=== PATIENT | female | born 1975 | race Caucasian/White ===

== ENCOUNTER 2018-10-10 09:03 | Day surgery (SDC) | payer OTHER, SELFPAY ==
[2018-10-10 09:15] VITALS: BP 94/61; PULSE 76; RESP 16; TEMP 36.5; O2SAT 99
[2018-10-10 09:48] LABS: HCT 40.4 % (36.0-46.0); HGB 13.7 g/dL (12.0-15.5); Mean Corp. HGB Concentration 33.9 g/dL (32.0-36.0); Mean Corpuscular Hemoglobin 31.4 pg (27.0-33.0); Mean Corpuscular Volume 92.7 fL (80-95); Mean Platelet Volume 10.5 fL (8.0-11.0); Platelet Count 215 x1000/uL (130-400); RBC 4.36 m/cumm (4.00-5.20); RBC Distribution Width 11.8 % (11.7-14.6); White Blood Cell Count 7.79 k/cumm (4.4-10.8)
[2018-10-10] MEDS: Lactated Ringers 1,000 ML 125 ML IV ×2 (09:56→12:43)
[2018-10-10] MEDS: Silver Nitrate Stick 1 EACH (14:15)
--- NOTE | 2018-10-10 14:32 | ROE_ITS ---
Date of service: 10/10/18 Time of Service: 14:31 Operative Note DATE OF PROCEDURE: 10/10/18 PRE-OP DIAGNOSIS: cervical stenosis impeding iud insertion POST-OP DIAGNOSIS: same PROCEDURE: Mirena IUD placement SURGEON: Varsha Quigley ANESTHESIA: MAC ESTIMATED BLOOD LOSS: 10 PATHOLOGY: none sent COMPLICATIONS: None Patient was transported to: PACU Implants: Mirena IUD Indications: contraception, sedation needed to dilate stenotic cervix Findings: stenotic cervix, uterine cavity length 7.5 cm Procedure Description: The patient was taken to the operating room where she was properly identified she was then placed on the operating table in dorsal supine position. MAC anesthesia was then induced without difficulty the patient was placed in the dorsal lithotomy position and prepped in a normal sterile fashion. A bivalve speculum was placed in the vagina the cervix was visualized grasped on the anterior lip with a single-tooth tenaculum. Using the Dash dilators the cervix was cautiously dilated to allow insertion of the Mirena IUD. The uterus was sounded to 7.5 cm and the Mirena IUD was then placed into the uterus and the strings were cut short per the patient's request. All equipment was removed from this cervix a small amount of silver nitrate was used to stop the bleeding from the puncture site of the single- tooth tenaculum and hemostasis was confirmed the speculum was removed the patient was awakened and taken to recovery room in stable condition. Sponge lap needle and instrument count were correct x2
[2018-10-10 14:58] VITALS: BP 105/69; PULSE 59; RESP 18; TEMP 36.4; O2SAT 99
[2018-10-10] MEDS: Acetaminophen 500 MG TAB 1000 MG PO (15:05)
== END 2018-10-10 15:25 | disposition home or self-care (01) ==
PROVIDERS: PCP Family Medicine; Visit Provider Obstetrics & Gynecology
PROC: (CPT 58300; principal; 2018-10-10 09:30)
DX: N88.2 Stricture and stenosis of cervix uteri (principal); Z30.430 Encounter for insertion of intrauterine contraceptive device
CPT/HCPCS: 58300; 85027; 86850; 86900; 86901

== ENCOUNTER 2018-11-11 00:46 | Outpatient (CLI) | payer OTHER, SELFPAY ==
--- NOTE | 2018-11-11 15:04 | DI.MAMMO_ITS ---
SYMPTOM/DIAGNOSIS: DIAGNOSTIC, 6 MO F/U, F/U ABNL MAMMO RIGHT MAMMOGRAM: Mammograms were interpreted according to the usual protocol including computer analysis with CAD system, tomosynthesis and C view imaging. This is a 6 month follow up to 04/2018. The right breast is composed of scattered fibroglandular densities. A previously questioned area of increased density in the superior breast is no longer seen. No new masses or suspicious microcalcifications are seen. IMPRESSION: Category 1C, negative mammogram. Bilateral screening should be resumed in 6 months. [facility] ASSESSMENT OF FINDINGS: Negative. Category 1. Patient will receive a letter notifying them of these results. Bi-RADS category C. The breasts are heterogeneously dense, which may obscure small masses.
== END 2018-11-11 01:06 ==
PROVIDERS: PCP Family Medicine; Visit Provider Family Medicine
DX: Z12.31 Encounter for screening mammogram for malignant neoplasm of breast (principal); R92.8 Other abnormal and inconclusive findings on diagnostic imaging of breast; N60.81 Other benign mammary dysplasias of right breast
CPT/HCPCS: 77061; 77065; G0279

== ENCOUNTER 2018-11-19 17:17 | Outpatient (REF) | payer OTHER, SELFPAY ==
[2018-11-19 20:34] LABS: ALT 18 U/L (12-78); AST 16 U/L (15-37); Alkaline Phosphatase 60 U/L (46-116); Anion Gap 9.5 mmol/L (3-11); BUN 14 mg/dL (7-18); Bilirubin, Total 0.6 mg/dL (0.2-1.0); CO2 27.5 mmol/L (21.0-32.0); CREATININE 0.67 mg/dL (0.55-1.02); Calcium 8.8 mg/dL (8.5-10.1); Chloride 103 mmol/L (98-107); Glucose 85 mg/dL (70-100); Potassium 3.7 mmol/L (3.5-5.1); Sodium 140 mmol/L (136-145); Total Protein 6.9 g/dL (6.4-8.2); Vitamin B12 312 pg/mL (193-986)
[2018-11-21 00:05] LABS: Vitamin D 25 Total 51.4 ng/ml (30-100)
[2018-11-21 16:57] LABS: Tissue Transglutaminase Ab IgA <1.2 U/mL
== END 2018-11-19 17:37 ==
LOC: NCHCN 17:17
PROVIDERS: PCP Family Medicine; Visit Provider Family Medicine
DX: Z00.00 Encounter for general adult medical examination without abnormal findings (principal); R11.0 Nausea; K90.0 Celiac disease; K58.9 Irritable bowel syndrome, unspecified
CPT/HCPCS: 80053; 82306; 82607; 82746; 83516; 84443

== ENCOUNTER 2019-03-19 00:08 | Outpatient (CLI) | payer OTHER, SELFPAY ==
--- NOTE | 2019-03-19 14:15 | DI.RAD_ITS ---
SYMPTOMS/DIAGNOSIS: CELIAC DISEASE, K90.0 DEXA SCAN: DEXA scan was performed according to the usual protocol. Findings for left hip scanning are a T score of 0 with left femoral neck T score of 0.3. Previous examination of November 2014 showed a left hip T score of 0.4. Lumbar spine T score is -0.1 Previous lumbar spine T score was -0.1 in November 2014. Left forearm scanning shows a T score of 0. Previous examination of November 2014 showed left forearm T score of -0.3. CONCLUSION: Findings consistent with normal bone density according to the WHO criteria. Lateral vertebral scanogram shows no evidence of a vertebral compression fracture.
== END 2019-03-19 00:28 ==
PROVIDERS: PCP Family Medicine; Visit Provider Family Medicine
DX: K90.0 Celiac disease (principal); Z13.820 Encounter for screening for osteoporosis
CPT/HCPCS: 77080

== ENCOUNTER 2019-05-04 00:35 | Outpatient (CLI) | payer OTHER, SELFPAY ==
--- NOTE | 2019-05-04 08:23 | DI.RAD_ITS ---
SYMPTOM/DIAGNOSIS: IRRITABLE BOWEL SYNDROME, K58.9,CELIAC DISEASE,L90.0, BLOATING AND DISCOMFORT, ASSESS FOR AMOUNT OF STOOL ABDOMEN: A single view was obtained. There is an IUD in place in the pelvic midline. Bowel gas pattern is unremarkable with a moderate amount of fecal material in the colon and no evidence of obstruction. No other specific abnormality is seen.
== END 2019-05-04 00:55 ==
PROVIDERS: PCP Family Medicine; Visit Provider Family Medicine
DX: R14.0 Abdominal distension (gaseous) (principal); K58.9 Irritable bowel syndrome, unspecified; K90.0 Celiac disease; Z97.5 Presence of (intrauterine) contraceptive device
CPT/HCPCS: 74018

== ENCOUNTER 2020-01-08 09:26 | Outpatient (REF) | payer BC, SELFPAY ==
--- NOTE | 2020-01-08 08:15 | PAPFT_PTH ---
PATIENT: Leeanne Ward [facility] U#:[id number] AGE/SX: 44/F ROOM: RE01/08/[address]: Kaela Hernandez : 1975 BED: DIS: 01/08/2020 SPEC #: [id number] RECD: 01/08/20 16:26 STATUS: H[place]ARY REAna #: [id number] JACQUELINE: 01/08/20 08:[address]: Kaela Hernandez DEPT: [facility] Cytology RECD BY: Eva Layton Tissues: 1 - CX/ENDOCX FOR PAP SMEARS Procedures: PAP THIN PREP/[facility] Screening HPV DNA PROBE Comments: [id number]
[2020-01-08 13:16] LABS: ALT 23 U/L (14-59); AST 15 U/L (15-37); Alkaline Phosphatase 64 U/L (46-116); Anion Gap 8.8 mmol/L (3-11); BUN 16 mg/dL (7-18); Bilirubin, Total 0.5 mg/dL (0.2-1.0); CO2 28.2 mmol/L (21.0-32.0); CREATININE 0.58 mg/dL (0.55-1.02); Calcium 8.3 mg/dL (8.5-10.1); Chloride 105 mmol/L (98-107); Glucose 72 mg/dL (74-106); Potassium 4.1 mmol/L (3.5-5.1); Sodium 142 mmol/L (136-145); Vitamin B12 304 pg/mL (193-986)
[2020-01-11 09:35] LABS: IgA 26 mg/dL (85-499)
[2020-01-11 12:56] LABS: Vitamin D 25 Total 46.1 ng/ml (30-100)
[2020-01-12 09:09] LABS: Methylmalonic Acid 0.32 nmol/mL (<=0.40)
== END 2020-01-08 09:46 ==
LOC: NCHCN 09:26
PROVIDERS: PCP Family Medicine; Visit Provider Family Medicine
DX: Z00.00 Encounter for general adult medical examination without abnormal findings (principal); F41.9 Anxiety disorder, unspecified; D51.9 Vitamin B12 deficiency anemia, unspecified; Z51.81 Encounter for therapeutic drug level monitoring; Z12.4 Encounter for screening for malignant neoplasm of cervix
CPT/HCPCS: 80053; 80186; 82306; 82784; 88142; 82607; 87624

== ENCOUNTER 2020-11-16 18:24 | Outpatient (REF) | payer BC, SELFPAY ==
[2020-11-16 19:50] LABS: HCT 39.6 % (36.0-46.0); HGB 12.9 g/dL (11.2-15.7); MCH 30.3 pg (27.0-33.0); MCHC 32.6 % (32.0-36.0); MPV 10.9 fL (8.0-11.0); Platelet Count 226 10^3/uL (130-400); RBC 4.26 10^6/uL (3.93-5.22); RDW 11.8 % (11.7-14.6); RDW-SD 40.4 fL; WBC 4.97 10^3/uL (4.4-10.8)
[2020-11-16 20:40] LABS: ALT 22 U/L (14-59); AST 16 U/L (15-37); Albumin 4.1 g/dL (3.4-5.0); Alkaline Phosphatase 67 U/L (46-116); Anion Gap 5.5 mmol/L (3-11); BUN 21 mg/dL (7-18); Bilirubin, Total 0.4 mg/dL (0.2-1.0); CO2 30.5 mmol/L (21.0-32.0); CREATININE 0.76 mg/dL (0.55-1.02); Calcium 8.6 mg/dL (8.5-10.1); Chloride 105 mmol/L (98-107); Folate 5.7 ng/mL (8.6-20.0); Glucose 70 mg/dL (74-106); Potassium 3.9 mmol/L (3.5-5.1); Sodium 141 mmol/L (136-145); Total Protein 7.1 g/dL (6.4-8.2); Vitamin B12 454 pg/mL (193-986)
[2020-11-17 04:36] LABS: Vitamin D 25 Total 45.6 ng/ml (30-100)
[2020-11-21 13:04] LABS: Gliadin (Deamidated) Ab, IgA <10.0 U; Gliadin (Deamidated) Ab, IgG <10.0 U
[2020-11-21 15:07] LABS: IgA 27 mg/dL (85-499); Interpretation (See Note); Tissue Transglutaminase IgA <1.2 U/mL (<4.0)
[2020-11-22 12:09] LABS: Methylmalonic Acid 0.27 nmol/mL (<=0.40)
== END 2020-11-16 18:44 ==
LOC: NCHCN 18:24
PROVIDERS: PCP Family Medicine; Visit Provider Family Medicine
DX: K90.0 Celiac disease (principal); K58.9 Irritable bowel syndrome, unspecified; R53.83 Other fatigue; R11.0 Nausea; R20.9 Unspecified disturbances of skin sensation
CPT/HCPCS: 80053; 80186; 82306; 82784; 83516; 85027; 82607; 82746; 84443

== ENCOUNTER 2021-05-29 01:56 | Outpatient (CLI) | payer BC, SELFPAY ==
--- NOTE | 2021-05-29 08:30 | DI.CT_ITS ---
Exam(s) CT ABDOMEN PELVIS W EXAM: CT ABDOMEN PELVIS W CLINICAL HISTORY: PELVIC PAIN, R10.2, LOW BACK PAIN, M54.5. TECHNIQUE: Imaging Protocol: Axial computed tomography images with coronal and sagittal reformatted images were created and reviewed CONTRAST MATERIAL: Intravenous: Omnipaque 100cc Oral: Yes COMPARISON: CR XR ABDOMEN FLAT PLATE from 05/04/2019 FINDINGS: VISUALIZED LUNG BASES: Benign-appearing increased lung markings in the right lower lobe medially marychuy cent to an osteophyte. Probably atelectatic. There are no pleural effusions.. ABDOMEN: There is no ascites. LIVER: There are no focal hepatic lesions evident . GALLBLADDER/BILIARY: No obvious gallbladder pathology. CBD is not dilated. PANCREAS: No evidence of pancreatic mass nor dilatation of the pancreatic duct. SPLEEN: Spleen is not enlarged. No obvious intrasplenic lesions. Splenic and portal veins are paten t. ADRENALS: There are no significant adrenal masses. KIDNEYS:No cysts evident. No solid renal masses. No calculi nor hydronephrosis.. Retroaortic left renal vein is noted, this seen approximately 5 percent the general population. ABDOMINAL AORTA: Abdominal aorta is not enlarged. LYMPH NODES:There is no retroperitineal nor paraaortic adenopathy. ABDOMINAL WALL: No evidence of significant anterior abdominal wall hernia. GI: Diameter of small bowel loops is normal. No evidence of small-bowel obstruction. Oral contrast has reached the colon. Appendix appears unremarkable. PELVIS: GI: No evidence of appendicitis.No evidence of sigmoid diverticulitis. LYMPH NODES: There is no intrapelvic nor inguinal adenopathy. REPRODUCTIVE: There is an IUD in satisfactory position within the endometrial canal. There are no ab normal adnexal masses. No free fluid in the pelvis. URINARY BLADDER: No calculi nor obvious masses evident OSSEOUS: No significant osseous lesions. Sacroiliac joints appear unremarkable. IMPRESSION: 1. IUD is noted within the endometrial canal. This appears to be in satisfactory position. There ar e no abnormal adnexal findings. No free fluid. 2. No bowel obstruction. No free air. No abscess. No evidence of appendicitis nor diverticulitis. 3. 4. RADIATION DOSE DELIVERED: 647.32mGy.cm Total DLP DATA REPOSITORY: All CT scans at this facility are submitted to the National Radiology Data Registry (NRDR) Dose Index Registry (DIR) with the [employer] ([employer]). RADIATION OPTIMIZATION: All CT scans at this facility use at least one of these dose optimization te chniques: automated exposure control; mA and/or kV adjustment per patient size (includes targeted exa ms where dose is matched to clinical indication); or iterative reconstruction.
[2021-05-29] MEDS: Omnipaque 350 MG/ML 50 ML BTL PO (08:44)
[2021-05-29] MEDS: Breeza Beverage 473 ML BTL PO ×2 (08:44→08:45)
[2021-05-29] MEDS: Omnipaque 350 MG/ML 100 ML BTL IJ (09:37)
[2021-05-29] MEDS: Normal Saline - Diluent 50 ML VIAL IV (09:39)
--- NOTE | 2021-05-29 11:50 | DI.MRI_ITS ---
Exam(s) MR LUMBAR SPINE WO EXAM: MR LUMBAR SPINE WO CLINICAL HISTORY: PELVIC PAIN, R10.2, LOW BACK PAIN, M54.5, SCIATICA RT, M54.31. TECHNIQUE: Multiplanar multisequence MRI of the Lumbar spine was performed. COMPARISON: DX XR DEXA BONE DENSITY W/WO TOBI from 03/19/2019 FINDINGS: Five lumbar vertebrae are presumed Conus medullaris is at L1-2 level.. There is no evidence of conus mass nor subjacent clumping of int rathecal nerve roots to suggest arachnoiditis. The distal thecal sac appears unremarkable.There is n o evidence of Tarlov intrasacral cysts nor other significant findings within the sacral canal Bones:There are no fractures nor ominous osseous lesions in the lumbar vertebral bodies and visualize d sacrum. With respect to the individual levels... T12-L1: Unremarkable L1-2: Normal disc height and signal. No disc herniation nor central canal stenosis.No foraminal steno sis L2-3: Normal disc height. No disc herniation nor central canal stenosis.No foraminal stenosis.No face t arthropathy. L3-4: Normal disc height. No disc herniation or central canal stenosis.No foraminal stenosis.No face t arthropathy. L4-5: Normal disc height. There is a posterior central-slightly right of center disc herniation whic h extends posteriorly 5 mm and is approximately 1.2 cm wide. This indents the thecal sac anteriorly. Central canal dimensions are lower limb normal. This disc protrusion does not extend into the exit ing neural foramina which are patent bilaterally. There is no significant facet arthropathy at this level L5-S1: Normal disc height and signal. No disc herniation. No canal stenosis. No foraminal stenosis . Facets unremarkable Soft tissues: paraspinal soft tissues appear unremarkable. IMPRESSION: 1. Main finding here is at L4-5 level where there is a central subligamentous disc herniation as desc ribed above extending posteriorly 4-5 millimeters and approximately 1.2 cm wide. This indents the an terior thecal sac at this level. No true nor foraminal stenosis at this level nor facet arthropathy. 2. Other levels appear unremarkable. 3. In no significant osseous lesions. DATA REPOSITORY:
== END 2021-05-29 02:16 ==
PROVIDERS: PCP Family Medicine; Visit Provider Family Medicine
DX: R10.2 Pelvic and perineal pain; M51.16 Intervertebral disc disorders with radiculopathy, lumbar region; Z97.5 Presence of (intrauterine) contraceptive device
CPT/HCPCS: 72148; 74177; J3490; Q9967

== ENCOUNTER 2022-03-22 12:43 | Outpatient (REF) | payer BC, SELFPAY ==
[2022-03-22 15:50] LABS: HGB 12.8 g/dL (11.2-15.7); MCH 30.5 pg (27.0-33.0); MCHC 32.8 % (32.0-36.0); MCV 93.1 fL (80-95); MPV 11.4 fL (8.0-11.0); Platelet Count 221 10^3/uL (130-400); RBC 4.19 10^6/uL (3.93-5.22); RDW 12.4 % (11.7-14.6); RDW-SD 42.5 fL; WBC 5.62 10^3/uL (4.4-10.8)
[2022-03-22 16:59] LABS: Vitamin D 25 Total 23.3 ng/mL (30-100)
[2022-03-22 17:01] LABS: ALT 25 U/L (14-59); AST 20 U/L (15-37); Albumin 4.1 g/dL (3.4-5.0); Alkaline Phosphatase 82 U/L (46-116); Anion Gap 5.7 mmol/L (3-11); BUN 21 mg/dL (7-18); Bilirubin, Total 0.5 mg/dL (0.2-1.0); CO2 27.3 mmol/L (21.0-32.0); CREATININE 0.6 mg/dL (0.55-1.02); Calcium 8.5 mg/dL (8.5-10.1); Chloride 107 mmol/L (98-107); Glucose 79 mg/dL (74-106); Potassium 4.7 mmol/L (3.5-5.1); Sodium 140 mmol/L (136-145); Total Protein 7.1 g/dL (6.4-8.2); Vitamin B12 1153 pg/mL (193-986)
[2022-03-26 12:46] LABS: Tissue Transglutaminase Ab IgA <1.2 U/mL; Tissue Transglutaminase Ab IgG 1.8 U/mL
[2022-03-26 21:56] LABS: Gliadin (Deamidated) Ab, IgG <10.0 U
== END 2022-03-22 12:44 | disposition home or self-care (01) ==
LOC: NCHCN 12:43
PROVIDERS: PCP Family Medicine; Visit Provider Family Medicine
DX: K90.0 Celiac disease (principal); Z00.00 Encounter for general adult medical examination without abnormal findings; F41.9 Anxiety disorder, unspecified; R53.83 Other fatigue; R20.2 Paresthesia of skin; R00.2 Palpitations; R11.0 Nausea
CPT/HCPCS: 80053; 82306; 83516; 85027; 82607

== ENCOUNTER → 2022-04-03 17:45 | Outpatient (CLI) | payer BC, SELFPAY ==
--- NOTE | 2022-04-03 | DI.RAD_ITS ---
Exam(s) XR ANKLE RT COMPLETE EXAM: XR ANKLE RT COMPLETE CLINICAL HISTORY: ANKLE JOINT PAIN, FOOT PAIN. TECHNIQUE: 2D digital imaging was performed. Three views. COMPARISON: No exams were available for comparison FINDINGS: BONES: No acute fracture is present. No bony destructive lesion is seen. Tiny plantar calcaneal sp ur. Small ossicle seen at the dorsal aspect of talonavicular joint. JOINTS: The ankle mortise is normally aligned. SOFT TISSUE: Normal. Artifact related to compression stocking. IMPRESSION: Unremarkable radiographs of the right ankle. DATA REPOSITORY: RADIATION DOSE DELIVERED:
--- NOTE | 2022-04-03 | DI.RAD_ITS ---
Exam(s) XR FOOT RT COMPLETE EXAM: XR FOOT RT COMPLETE CLINICAL HISTORY: RT FOOT PAIN. TECHNIQUE: 2D digital imaging was performed. Three views. COMPARISON: No exams were available for comparison FINDINGS: BONES: No acute fracture is present. No bony destructive lesion is seen. Small ossicles lateral to c uboid. Small ossicle at the dorsal talar navicular joint. Tiny plantar calcaneal spur. JOINTS: No dislocation present. No significant joint space narrowing. SOFT TISSUE: Normal. Artifact from compression stocking. IMPRESSION: Unremarkable radiographs of the right foot. DATA REPOSITORY: RADIATION DOSE DELIVERED:
--- NOTE | 2022-04-03 18:42 | DI.VRAD_ITS ---
PROCEDURE INFORMATION: Exam: XR Right Foot Exam date and time: 04/03/2022 18:17 Age: 47 years old Clinical indication: Other: Ankle joint pain, foot pain TECHNIQUE: Imaging protocol: XR Right foot. Views: 3 or more views. COMPARISON: CR RIGHT FOOT COMPLETE 06/07/2016 14:22 FINDINGS: Bones/joints: Tiny plantar calcaneal spur. No acute fracture or subluxation. Soft tissues: Normal. IMPRESSION: No acute bony pathology. Dictated and Authenticated by: Lorraine Beck MD. Ordering:ALLY Berger MD
--- NOTE | 2022-04-03 18:42 | DI.VRAD_ITS ---
PROCEDURE INFORMATION: Exam: XR Right Ankle Exam date and time: 04/03/2022 18:15 Age: 47 years old Clinical indication: Other: Ankle joint pain, foot pain TECHNIQUE: Imaging protocol: XR Right ankle. Views: 3 or more views. COMPARISON: CR RIGHT FOOT COMPLETE 06/07/2016 14:22 FINDINGS: Bones/joints: No acute fracture or subluxation. Tiny plantar calcaneal spur. Soft tissues: Unremarkable. IMPRESSION: No acute bony pathology. Dictated and Authenticated by: Lorraine Beck MD. Ordering:ALLY Berger MD
== END ==
PROVIDERS: PCP Family Medicine; Visit Provider Nurse Practitioner Family
DX: M25.571 Pain in right ankle and joints of right foot (principal); M79.671 Pain in right foot; M77.31 Calcaneal spur, right foot
CPT/HCPCS: 73610; 73630

== ENCOUNTER 2022-12-28 16:44 | Outpatient (REF) | payer BC, SELFPAY ==
[2022-12-28 16:36] LABS: HCT 40.9 % (36.0-46.0); HGB 13.6 g/dL (11.2-15.7); MCH 30.7 pg (27.0-33.0); MCHC 33.3 % (32.0-36.0); MCV 92 fL (80-95); MPV 10.8 fL (8.0-11.0); Platelet Count 246 10^3/uL (130-400); RBC 4.43 10^6/uL (3.93-5.22)
[2022-12-28 17:15] LABS: ALT 19 U/L (14-59); AST 27 U/L (15-37); Albumin 4.2 g/dL (3.4-5.0); Alkaline Phosphatase 84 U/L (46-116); Anion Gap 6.6 mmol/L (3-11); BUN 17 mg/dL (7-18); Bilirubin, Total 0.5 mg/dL (0.2-1.0); CO2 28.4 mmol/L (21.0-32.0); CREATININE 0.8 mg/dL (0.55-1.02); Calcium 9.4 mg/dL (8.5-10.1); Calculated LDL 125 mg/dL (<100); Chloride 104 mmol/L (98-107); Cholesterol 230 mg/dL (<200); Estimated GFR 90.83 (mL/min/1.73m2); Glucose 86 mg/dL (74-106); HDL Cholesterol 100 mg/dL (40-60); Potassium 4.6 mmol/L (3.5-5.1); Sodium 139 mmol/L (136-145); Total Protein 7.9 g/dL (6.4-8.2); Triglyceride 25 mg/dL (<150); Vitamin B12 1216 pg/mL (193-986)
[2022-12-28 17:18] LABS: Vitamin D 25 Total 36.7 ng/mL (30-100)
[2022-12-28 17:54] LABS: TSH (W/Ref FT4) 1.52 uIU/mL (0.36-3.74)
[2022-12-28 18:12] LABS: C-Reactive Protein < 0.05 mg/dL (0.0-0.3)
[2022-12-31 10:12] LABS: FSH >150.0 mIU/mL (See Note); LH 65.6 mIU/mL (See Note)
[2023-01-01 18:52] LABS: Gliadin (Deamidated) Ab, IgG <10.0 U
== END 2022-12-28 16:45 | disposition home or self-care (01) ==
LOC: NCHCN 16:44
PROVIDERS: PCP Family Medicine; Visit Provider Family Medicine
DX: K90.0 Celiac disease (principal); Z00.00 Encounter for general adult medical examination without abnormal findings; Z13.220 Encounter for screening for lipoid disorders; E55.9 Vitamin D deficiency, unspecified; R53.83 Other fatigue; Z78.0 Asymptomatic menopausal state; R00.2 Palpitations
CPT/HCPCS: 80053; 80061; 82306; 83516; 85027; 82607; 83001; 83002; 84443; 86140

== ENCOUNTER 2024-08-05 18:24 | Outpatient (REF) | payer BC, SELFPAY ==
[2024-08-05 20:24] LABS: HCT 37.8 % (36.0-46.0); HGB 12.6 g/dL (11.2-15.7); MCH 31.2 pg (27.0-33.0); MCHC 33.3 % (32.0-36.0); MCV 94 fL (80-95); Platelet Count 222 10^3/uL (130-400); RBC 4.04 10^6/uL (3.93-5.22); RDW 11.9 % (11.7-14.6); RDW-SD 41.9 fL; WBC 6.89 10^3/uL (4.4-10.8)
[2024-08-05 21:03] LABS: ALT 23 U/L (14-59); AST 19 U/L (15-37); Albumin 3.8 g/dL (3.4-5.0); Alkaline Phosphatase 76 U/L (46-116); Anion Gap 7.2 mmol/L (3-11); BUN 11 mg/dL (7-18); Bilirubin, Total 0.28 mg/dL (0.2-1.0); CO2 28.8 mmol/L (21.0-32.0); CREATININE 0.8 mg/dL (0.55-1.02); Calcium 8.7 mg/dL (8.5-10.1); Chloride 104 mmol/L (98-107); Estimated GFR 89.71 (mL/min/1.73m2); Glucose 83 mg/dL (74-106); Potassium 4.1 mmol/L (3.5-5.1); Sodium 140 mmol/L (136-145); TSH (W/Ref FT4) 1.44 uIU/mL (0.36-3.74); Total Protein 6.9 g/dL (6.4-8.2); Vitamin D 25 Total 64.5 ng/mL (30-100)
[2024-08-07 09:46] LABS: Hepatitis C Ab w Rflx HCV PCR Negative (Negative)
[2024-08-07 11:44] LABS: HIV-1/2 Ag & Ab Screen Negative (Negative)
[2024-08-07 21:59] LABS: Gliadin (Deamidated) Ab, IgA <10.0 U
== END 2024-08-05 18:25 | disposition home or self-care (01) ==
LOC: NCHCN 18:24
PROVIDERS: PCP Family Medicine; Visit Provider Family Medicine
DX: K90.0 Celiac disease (principal); Z11.4 Encounter for screening for human immunodeficiency virus [HIV]; Z11.59 Encounter for screening for other viral diseases; E55.9 Vitamin D deficiency, unspecified
CPT/HCPCS: 80053; 82306; 83516; 85027; 86803; 87389; 84443

== ENCOUNTER 2025-05-17 18:28 | Outpatient (REF) | payer BC, SELFPAY ==
[2025-05-17 19:38] LABS: HCT 39.4 % (36.0-46.0); HGB 13.2 g/dL (11.2-15.7); MCHC 33.5 % (32.0-36.0); MCV 93 fL (80-95); MPV 10.6 fL (8.0-11.0); Platelet Count 241 10^3/uL (130-400); RBC 4.26 10^6/uL (3.93-5.22); RDW 11.9 % (11.7-14.6); RDW-SD 40.1 fL; WBC 6.27 10^3/uL (4.4-10.8)
[2025-05-17 20:16] LABS: ALT 33 U/L (14-59); AST 20 U/L (15-37); Albumin 4.1 g/dL (3.4-5.0); Alkaline Phosphatase 102 U/L (46-116); Anion Gap 10.1 mmol/L (3-11); BUN 15 mg/dL (7-18); Bilirubin, Total 0.3 mg/dL (0.2-1.0); CO2 27.9 mmol/L (21.0-32.0); CREATININE 0.8 mg/dL (0.55-1.02); Calcium 9.2 mg/dL (8.5-10.1); Chloride 104 mmol/L (98-107); Estimated GFR 89.15 (mL/min/1.73m2); Ferritin 113 ng/mL (8-252); Folate 4.4 ng/mL (8.6-20.0); Glucose 85 mg/dL (74-106); Potassium 4.4 mmol/L (3.5-5.1); Sodium 142 mmol/L (136-145); TSH (W/Ref FT4) 1.47 uIU/mL (0.36-3.74); Total Protein 7.7 g/dL (6.4-8.2); Vitamin B12 496 pg/mL (193-986)
[2025-05-17 21:29] LABS: Hemoglobin A1C 5.4 % (<5.7)
[2025-05-18 04:54] LABS: Vitamin D 25 Total 64 ng/mL (30-100)
[2025-05-19 12:20] LABS: Tissue Transglutaminase IgA <4.0 CU (<20.0)
[2025-05-21 13:40] LABS: Gliadin (Deamidated) Ab, IgG <10.0 U
== END 2025-05-17 18:29 | disposition home or self-care (01) ==
LOC: NCHCN 18:28
PROVIDERS: PCP Family Medicine; Visit Provider Family Medicine
DX: K90.0 Celiac disease (principal); R73.03 Prediabetes
CPT/HCPCS: 80053; 82306; 83516; 85027; 86364; 82607; 82728; 82746; 83036; 84443

== ENCOUNTER 2025-05-24 04:43 | Emergency (ER) | payer BC, SELFPAY ==
--- NOTE | 2025-05-24 04:46 | W.ED.GENAD ---
Discharge Plan Disposition Patient Disposition: Home Condition: Improving Discharge Details Clinical Impression: Spasm of muscle of lower back Primary Care Provider: Kaela Hernandez ED Provider: Aleks Gunderson [place] Meds and New Rx's Prescriptions: New methocarbamol 500 mg tablet 1,000 mg PO TID Qty: 30 0RF lidocaine 5 % adhesive patch,medicated 1 patch topical DAILY Qty: 15 0RF Rx Instructions: leave on most painful area for up to 12 hrs Continued Prempro 0.625-2.5 mg tablet 1 tab PO DAILY Patient Comments: TAKE 1 TABLET BY MOUTH DAILY phentermine 15 mg capsule 15 mg PO DAILY Patient Comments: TAKE 1 CAPSULE BY MOUTH ONCE DAILY bupropion HCl 100 mg tablet sustained-release 12 hr 100 mg PO BID Patient Comments: TAKE 1 TABLET BY MOUTH TWICE DAILY, MAY INCREASE TO 2 TABLETS PER DAY Discharge Instructions Instructions: Muscle Spasm ED Additional Instructions: You were seen for low back pain that is likely musculoskeletal and related to muscle spasm as we discussed. You will need to rest for the next day or 2. You should alternate ibuprofen 600 mg with acetaminophen 1000 mg every 4 hours. A prescription for the methocarbamol (Robaxin) and lidocaine patches has been sent to pharmacy. Would use heat or cold therapy whichever seems to work better. Follow-up with primary care in the next couple of days if you are not improving. Return to the ED if you develop any bladder or bowel dysfunction, numbness or weakness to the lower extremities, fever, abdominal pain, other concerns. Referrals: Kaela Hernandez MD [Primary Care Provider, Medicine] [facility] General Mode of arrival: ambulatory. Date/Time Provider Initiated Documentation: 05/24/25 04:46. Limitations to Documentation: no limitations. Information obtained by: patient, RN notes reviewed and old records reviewed. HPI Narrative: Patient presents to ED with lower back pain that she first noticed yesterday while walking into the grocery store. She had a sharp stabbing pain in the right side of her lower back near the sacrum. It resolved but over the course of the evening and overnight she has had increasing pain in this area especially with any type of movement. She denies any discrete injury. She did take Itzel Back [employer] Body pain relief last night. She was essentially unable to get out of bed this morning without help from her . She reports a long history of GI problems related to celiac, IBD. She had been having some problems with constipation and took 2 caps of MiraLAX yesterday which did result in bowel movement. He has not having any fever, vomiting, urinary symptoms. She will occasionally have problems with sciatica type pain but this seems completely different. Pain does not seem to be too bad once she is up. She is able to walk slowly and has to move cautiously especially in regards to turning her trunk. Related Data Home Medications ?Medication ?Instructions ?Recorded ?Confirmed bupropion HCl 100 mg tablet,12 hr 100 mg PO BID 05/24/25 05/24/25 sustained-release conj estrogen-medroxyprogesterone 1 tab PO DAILY 05/24/25 05/24/25 0.625 mg-2.5 mg tablet (Prempro) lidocaine 5 % topical patch 1 patch topical DAILY #15 ea 05/24/25 methocarbamol 500 mg tablet 1,000 mg (2 x 500 mg) PO TID #30 05/24/25 tabs phentermine 15 mg capsule 15 mg PO DAILY 05/24/25 05/24/25 Previous Rx's ?Medication ?Instructions ?Recorded lidocaine 5 % topical patch 1 patch topical DAILY #15 ea 05/24/25 methocarbamol 500 mg tablet 1,000 mg (2 x 500 mg) PO TID #30 05/24/25 tabs Allergies Allergy/AdvReac Type Severity Reaction Status Date / Time No Known Allergies Allergy Verified 10/10/18 09:27 Gluten Intolerance AdvReac Intermediate GI upset Uncoded 10/10/18 09:27 Exam Narrative Exam Narrative: Const: WDWN female in NAD. VS per triage. HEENT: NC/AT. Normal facial exam. Neck: Supple. Trachea midline. Lungs: Normal respiratory effort. GI: Soft/ND/NT. Back: Extremely limited range of motion involving lower back due to pain. No spinal tenderness. Tenderness present to the right of the sacrum though not clearly related to the right SI joint. No erythema or warmth present. Neuro: A+O x 3. Normal speech, mentation. Cranial nerves II - XII grossly intact. No gross motor or sensory deficit. Ext: No C/C/E. Medical Decision Making Patient presenting to ED with what appears to be musculoskeletal low back pain given her extremely limited range of motion, significantly worsening pain when trying to get onto the stretcher and raise her legs up. Does not appear to have any focal neurologic changes. Some tenderness to the right of the sacral area, possibly involving SI joint. No discrete trauma but developed severe pain in that area yesterday afternoon walking into the grocery store. This does not appear to be GI related at all. Abdomen is benign. Recent labs on the were completely normal. Will place an IV to treat symptomatically with ketorolac. She is having nausea due to the pain from moving onto the stretcher so we will also give some ondansetron. Will place a lidocaine patch. Will give a dose of oral Robaxin once nausea under control. Patient more comfortable at this time. Did receive a dose of IV acetaminophen as well. Is not having as much spasm and sharp pain as before. Still difficult to get comfortable but is feeling better. Again, this is not consistent with an abdominal problem. She has no neurologic red flags. Will plan to discharge home with prescriptions for Robaxin and lidocaine patches. Recommend alternating ibuprofen with acetaminophen and using heat or ice depending on which one seems to work better. Follow-up with PCP in the next day or two if not improving. Return precautions provided. Medical Records Medical records reviewed: Yes I reviewed the patient's medical records. Medical records narrative: PCP records/recent outpatient labs done 05/17 [facility] All Active Problems (Updated 05/24/25 @ 06:52 by Aleks Gunderson MD) Spasm of muscle of lower back (Acute) Medical History Depression Anxiety Irritable bowel disease Celiac disease Surgical History H/O breast surgery Social History Smoking/Tobacco Use Status: Never Smoking risk assessment performed?: Yes Alcohol Intake: current Alcohol Intake frequency: a few times a week Alcohol type: wine and hard liquor Drug use: Never Substance use type: does not use Housing: house Do you feel safe at home: Yes Do you feel safe in your relationship?: Yes History History 2 Para 2 Hx # Term Pregnancies Multiple births Hx # Pregnancies Ectopic pregnancies AB induced Hx Number of Living Children AB spontaneous
[2025-05-24 04:48] VITALS: BP 125/90; PULSE 90; RESP 18; O2SAT 99
[2025-05-24 04:51] VITALS: BP 125/90; PULSE 104
[2025-05-24] MEDS: Methocarbamol 500 MG TAB 1000 MG PO (05:21)
[2025-05-24] MEDS: Ketorolac 15 MG/ML VIAL IVP (05:21)
[2025-05-24] MEDS: Lidocaine 5% Patch 1 PATCH TP (05:22)
[2025-05-24] MEDS: Ondansetron 4 MG/2 ML VIAL IVP (05:25)
[2025-05-24] MEDS: ACETAMINOPHEN 1,000 MG/100 ML BAG 400 MG IVPB (06:09)
[2025-05-24 07:06] VITALS: BP 101/74; PULSE 71; RESP 16; O2SAT 100
== END 2025-05-24 07:09 | disposition home or self-care (01) ==
LOC: ER 08:01
PROVIDERS: Emergency Provider Emergency Medicine; PCP Family Medicine
DX: M62.830 Muscle spasm of back (principal)
CPT/HCPCS: 99283; 99284; 96375; 96365; J0131; J1885; J2405